=== PATIENT | female | born 1960 | race Caucasian/White ===

== ENCOUNTER 2017-06-24 17:58 | Inpatient (IN) ==
[2017-06-24 19:46] LABS: Bilirubin,Urine Negative (Negative); Blood,Urine Negative (Negative); Clarity,Urine Clear (Clear); Color,Urine Yellow (Yellow); Glucose,Urine (UA) Normal (Normal); Ketones,Urine Negative (Negative); Leukocyte Esterase,Urine Small (Negative); Nitrite,Urine Negative (Negative); Protein,Urine Negative (Neg-Trace); Specific Gravity,Urine 1.014 (1.010-1.025); Urobilinogen,Urine Normal (Normal)
[2017-06-24 19:52] LABS: Amphetamine Screen,Urine Negative ng/mL (Cutoff=1000); Barbiturate Screen,Urine Negative ng/mL (Cutoff=200); Benzodiazepines Screen,Urine Negative ng/mL (Cutoff=200); Cannabinoid Screen,Urine Negative ng/mL (Cutoff = 50); Cocaine Screen,Urine Negative ng/mL (Cutoff= 300); Opiate Screen,Urine Negative ng/mL (Cutoff=300); Phencyclidine Screen,Urine Negative ng/mL (Cutoff=25)
[2017-06-24 20:08] LABS: Squamous Epithelial Cell,Urine Moderate per lpf (None-Few)
[2017-06-24 20:09] LABS: Bacteria,Urine Few per hpf (None-Few); RBC,Urine 0-3 per hpf (0-3)
[2017-06-24 20:28] LABS: Basophils % 0.6 %; Eosinophils # 0.1 K/mcL (0.0-0.6); Eosinophils % 1.3 %; Hematocrit 40.4 % (35.3-44.9); Hemoglobin 13.8 g/dL (11.5-15.4); Immature Granulocytes % 0.3 % (0-4); Lymphocytes # 1.8 K/mcL (0.6-4.6); Lymphocytes % 25.6 %; Mean Corpuscular HGB Conc 34.2 g/dL (31.6-35.5); Mean Corpuscular Hemoglobin 30.1 pg (28.0-33.3); Mean Platelet Volume 11.4 fL (9.4-12.4); Monocytes # 0.7 K/mcL (0.0-1.3); Monocytes % 10.5 %; Neutrophils # 4.3 K/mcL (1.6-8.9); Platelet Count 272 K/mcL (140-400); Red Blood Count 4.59 M/mcL (3.82-4.97); Segmented Neutrophils % 61.7 %
[2017-06-24 20:41] LABS: BUN/Creatinine Ratio 13 (6-26); Blood Urea Nitrogen 11 mg/dL (7-20); Carbon Dioxide 21 mEq/L (19-29); Chloride 105 mEq/L (98-109); Glucose 99 mg/dL (70-99); Osmolality,Calculated 285 (280-300); Potassium 3.8 mEq/L (3.5-4.5); Sodium 138 mEq/L (136-145); eGFR For African Americans > 60 (> 60); eGFR For Non-African Americans > 60 (> 60)
[2017-06-24 20:45] LABS: Acetaminophen < 1.0 mcg/mL (10-30); Ethanol < 10 mg/dL (0-10); Salicylate < 5.0 mg/dL (15-30)
--- NOTE | 2017-06-24 23:09 | Emergency Department Note ---
Disposition Clinical Impression: Acute psychosis Disposition: Admitted As Inpatient Condition: Good Time of Disposition: 23:28 Psych HPI - General Chief Complaint: ED Psychiatric Symptoms Stated Complaint: not si/hi sleep deprived, "i need to go to [facility]" Time Seen by Provider: 06/24/17 19:33 Source: patient Mode of arrival: ambulatory Limitations: no limitations Nursing Notes Reviewed: Yes Vital Signs Reviewed: Yes - History of Present Illness HPI Narrative: 56-year-old female presenting to the emergency department with a chief complaint of insomnia. Patient states she has been feeling "out of her head". She is significant past medical history for schizoaffective disorder. She states she has been weaning herself off her medications. She does have an outpatient counselor. Patient states she does not have any specific suicidal ideation or homicidal ideation but did go to hospice today to speak with them about "stopping to take care of myself". Patient states she has been hospitalized for this in the past. She denies any intentional ingestion before arrival. She does disclose visual and auditory hallucinations including people in the waiting room making odd eye contact with her. - Related Data Home Medications Medication Instructions Recorded Confirmed Amlodipine [Amlodipine Besylate] 10 mg PO DAILY 05/19/15 08/30/15 Levothyroxine [Synthroid] 88 mcg PO QAM 05/19/15 08/30/15 Lisinopril [Zestril] 5 mg PO DAILY 05/19/15 08/30/15 Megestrol Acetate [Megace] 40 mg PO DAILY 05/19/15 08/30/15 Metformin HCl [Fortamet] 500 mg PO QAM 05/19/15 08/30/15 Multivitamin [Flintstones] 1 each PO DAILY 07/28/15 08/30/15 Oxybutynin [Ditropan] 5 mg PO TID 10/02/15 10/02/15 amLODIPine [Norvasc] 10 mg PO DAILY 10/02/15 10/02/15 Amoxicillin/Clavulanate [Augmentin] 875 mg PO BIDWM 10/03/15 10/03/15 Previous Rx's Medication Instructions Recorded Ibuprofen [Motrin] 800 mg PO Q8HR PRN #30 tablet 05/19/15 BuPROPion XL (24 HR) [Wellbutrin 300 mg PO DAILY tab.er.24h 01/08/16 Xl] LORazepam [Ativan] 1 mg PO TID PRN #90 tablet 01/08/16 Lurasidone [Latuda] 40 mg PO HS #60 tablet 01/08/16 Allergies Allergy/AdvReac Type Severity Reaction Status Date / Time diphenhydramine AdvReac See Verified 05/08/15 09:56 [From Benadryl] Comments Limitations: ROS unobtainable due to patients medical condition Constitutional: Denies: fever, chills, weakness Eyes: Reports: as per HPI ENT ED: Reports: as per HPI Cardiovascular: Denies: chest pain, palpitations Respiratory: Denies: cough, dyspnea, wheezes Gastrointestinal: Denies: abdominal pain, nausea, vomiting Genitourinary: Reports: as per HPI Musculoskeletal: Reports: as per HPI Integumentary: Reports: as per HPI Neurological: Denies: weakness, numbness, paresthesias Psychiatric: Reports: auditory hallucinations, visual hallucinations Endocrine: Reports: as per HPI Hematological/Lymphatic: Reports: as per HPI Allergic/Immunologic: Reports: as per HPI Past Medical History - Past Medical History Attestation: Yes The following information was validated with the patient. Medical history: Reports: diabetes, hypertension, other, thyroid disease Surgical history: Reports: other Psychiatric history: Reports: bipolar, depression, previous psychiatric hospitalization [employer] history: Reports: uterine fibroids - Social History Smoking Status: Never smoker Smokeless Tobacco Status: No Alcohol use: Reports: none Drug use: Reports: none Physical Exam - General Limitations: no limitations General appearance: alert, in no apparent distress - Head Head exam: atraumatic, normocephalic, normal inspection - Eye Eye exam: Present: normal appearance. Absent: scleral icterus, conjunctival injection - Chest Chest inspection: Present: normal inspection, symmetric chest wall rise. Absent : tenderness, rash - Respiratory Respiratory exam: Present: normal lung sounds bilaterally. Absent: respiratory distress, wheezes - Cardiovascular Cardiovascular exam: Present: regular rate, normal rhythm, normal heart sounds - Abdominal Exam Abdominal exam: Present: soft, Non-Tender. Absent: distention, guarding, rebound - Extremities Exam Extremities exam: Present: normal inspection, full ROM - Neurological Exam Neurological exam: Present: alert, oriented X3 - Psychiatric Psychiatric exam: Present: manic. Absent: homicidal ideation, suicidal ideation - Skin Skin exam: Present: warm, intact Course Course Narrative: 56-year-old female presenting for [facility] consultation. Patient appears manic on exam. She is alert and oriented 3 with stable vital signs. We will complete basic lab work for psychiatric workup and contact [facility] for further disposition. Disposition pending consultation by psychiatry. - Reevaluation(s) Reevaluation #1: Patient has been accepted by [facility] for inpatient psychiatric services. Patient is medically clear at this time. We will admit the patient at this time. She is alert and oriented 3 with stable vital signs. Patient agrees with this plan. Time: 23:28 Vital Signs Temperature 98 F 06/24/17 18:32 Pulse Rate 78 06/24/17 18:32 Respiratory Rate 16 06/24/17 18:32 Blood Pressure 169/92 06/24/17 18:32 O2 Sat by Pulse Oximetry 97 06/24/17 18:32 Temperature 98 F 06/24/17 18:32 Pulse Rate 78 06/24/17 18:32 Respiratory Rate 16 06/24/17 18:32 Blood Pressure 169/92 06/24/17 18:32 O2 Sat by Pulse Oximetry 97 06/24/17 18:32 Oxygen Delivery Oxygen Delivery Room Air Psych - Lab Data Result diagrams: 06/24/17 20:22 06/24/17 20:22 Lab Results 06/24/17 06/24/17 06/24/17 Range/Units 19:38 19:38 19:38 WBC (4.3-11.1) K/mcL RBC (3.82-4.97) M/mcL Hgb (11.5-15.4) g/dL Hct (35.3-44.9) % MCV (83.0-100.0) fL MCH (28.0-33.3) pg MCHC (31.6-35.5) g/dL RDW (11.5-14.5) % Plt Count (140-400) K/mcL MPV (9.4-12.4) fL Immature Gran % (0-4) % Seg Neutrophils % % Lymphocytes % % Monocytes % % Eosinophils % % Basophils % % Neutrophils # (1.6-8.9) K/mcL Lymphocytes # (0.6-4.6) K/mcL Monocytes # (0.0-1.3) K/mcL Eosinophils # (0.0-0.6) K/mcL Basophils # (0.0-0.2) K/mcL Sodium (136-145) mEq/L Potassium (3.5-4.5) mEq/L Chloride (98-109) mEq/L Carbon Dioxide (19-29) mEq/L BUN (7-20) mg/dL Creatinine (0.57-1.11) mg/dL Est GFR ( Amer) (> 60) Est GFR (Non-Af Amer) (> 60) BUN/Creatinine Ratio (6-26) Glucose (70-99) mg/dL Calculated Osmolality (280-300) Calcium (8.6-10.8) mg/dL Urine Color Yellow (Yellow) Urine Clarity Clear (Clear) Urine pH 6.0 (5.0-8.0) pH Units Ur Specific [place] 1.014 (1.010-1.025) Urine Protein Negative (Neg-Trace) mg/dL Urine Glucose (UA) Normal (Normal) mg/dL Urine Ketones Negative (Negative) mg/dL Urine Blood Negative (Negative) Urine Nitrite Negative (Negative) Urine Bilirubin Negative (Negative) Urine Urobilinogen Normal (Normal) mg/dL Ur Leukocyte Esterase Small H (Negative) Urine Microscopic RBC 0-3 (0-3) per hpf Urine Microscopic WBC 3-5 H (0-3) per hpf Ur Squamous Epith Cells Moderate H (None-Few) per lpf Urine Bacteria Few (None-Few) per hpf Ur Culture Indicated? YES A (NO) Urine Test Negative (Negative) Salicylates (15-30) mg/dL Urine Opiates Screen Negative (Ivdyxa=104) ng/mL Acetaminophen (10-30) mcg/mL Ur Barbiturates Screen Negative (Ycldvr=364) ng/mL Ur Phencyclidine Scrn Negative (Cutoff=25) ng/mL Ur Amphetamines Screen Negative (Xjmoqs=5561) ng/mL U Benzodiazepines Scrn Negative (Ygpvjq=661) ng/mL Urine Cocaine Screen Negative (Cutoff= 300) ng/mL U Marijuana (THC) Screen Negative (Cutoff = 50) ng/mL Ethyl Alcohol (0-10) mg/dL 06/24/17 06/24/17 Range/Units 20:22 20:22 WBC 7.0 (4.3-11.1) K/mcL RBC 4.59 (3.82-4.97) M/mcL Hgb 13.8 (11.5-15.4) g/dL Hct 40.4 (35.3-44.9) % MCV 88.0 (83.0-100.0) fL MCH 30.1 (28.0-33.3) pg MCHC 34.2 (31.6-35.5) g/dL RDW 13.0 (11.5-14.5) % Plt Count 272 (140-400) K/mcL MPV 11.4 (9.4-12.4) fL Immature Gran % 0.3 (0-4) % Seg Neutrophils % 61.7 % Lymphocytes % 25.6 % Monocytes % 10.5 % Eosinophils % 1.3 % Basophils % 0.6 % Neutrophils # 4.3 (1.6-8.9) K/mcL Lymphocytes # 1.8 (0.6-4.6) K/mcL Monocytes # 0.7 (0.0-1.3) K/mcL Eosinophils # 0.1 (0.0-0.6) K/mcL Basophils # 0.0 (0.0-0.2) K/mcL Sodium 138 (136-145) mEq/L Potassium 3.8 (3.5-4.5) mEq/L Chloride 105 (98-109) mEq/L Carbon Dioxide 21 (19-29) mEq/L BUN 11 (7-20) mg/dL Creatinine 0.82 (0.57-1.11) mg/dL Est GFR ( Amer) > 60 (> 60) Est GFR (Non-Af Amer) > 60 (> 60) BUN/Creatinine Ratio 13 (6-26) Glucose 99 (70-99) mg/dL Calculated Osmolality 285 (280-300) Calcium 10.0 (8.6-10.8) mg/dL Urine Color (Yellow) Urine Clarity (Clear) Urine pH (5.0-8.0) pH Units Ur Specific [place] (1.010-1.025) Urine Protein (Neg-Trace) mg/dL Urine Glucose (UA) (Normal) mg/dL Urine Ketones (Negative) mg/dL Urine Blood (Negative) Urine Nitrite (Negative) Urine Bilirubin (Negative) Urine Urobilinogen (Normal) mg/dL Ur Leukocyte Esterase (Negative) Urine Microscopic RBC (0-3) per hpf Urine Microscopic WBC (0-3) per hpf Ur Squamous Epith Cells (None-Few) per lpf Urine Bacteria (None-Few) per hpf Ur Culture Indicated? (NO) Urine Test (Negative) Salicylates < 5.0 L (15-30) mg/dL Urine Opiates Screen (Mvxavl=797) ng/mL Acetaminophen < 1.0 L (10-30) mcg/mL Ur Barbiturates Screen (Zlyxnm=525) ng/mL Ur Phencyclidine Scrn (Cutoff=25) ng/mL Ur Amphetamines Screen (Zxhlrg=1102) ng/mL U Benzodiazepines Scrn (Aheyrl=839) ng/mL Urine Cocaine Screen (Cutoff= 300) ng/mL U Marijuana (THC) Screen (Cutoff = 50) ng/mL Ethyl Alcohol < 10 (0-10) mg/dL Psychiatric Medical Clearance - Medical Clearance Checklist Medical History: Acute anxiety (Acute) Major depressive disorder, recurrent, severe with psychotic features (Acute) Homicidal ideation (Acute) Bipolar disorder (Acute) Acute psychosis (Acute) No Social History Section defined Current Vitals: Last Vital Signs Temp 98 F 06/24/17 18:32 Pulse 78 06/24/17 18:32 Resp 16 06/24/17 18:32 BP 169/92 06/24/17 18:32 Pulse Ox 97 06/24/17 18:32 Psychiatric Lab Panel: Drug Levels and Toxicity 06/24/17 06/24/17 19:38 20:22 Urine Opiates Screen Negative Acetaminophen < 1.0 L Ur Barbiturates Screen Negative Ur Phencyclidine Scrn Negative Ur Amphetamines Screen Negative U Benzodiazepines Scrn Negative Urine Cocaine Screen Negative U Marijuana (THC) Screen Negative Ethyl Alcohol < 10 Abnormal Labs: Abnormal lab results Ur Leukocyte Esterase Small (Negative) H 06/24/17 19:38 Urine Microscopic WBC 3-5 per hpf (0-3) H 06/24/17 19:38 Ur Squamous Epith Cells Moderate per lpf (None-Few) H 06/24/17 19:38 Ur Culture Indicated? YES (NO) A 06/24/17 19:38 Salicylates < 5.0 mg/dL (15-30) L 06/24/17 20:22 Acetaminophen < 1.0 mcg/mL (10-30) L 06/24/17 20:22 Attestation Statement - Attestation Attestation: I, Duy Budi, examined this patient and my medical decision-making was reviewed with the BOTTLE WASHER MACHINE/PA/Advanced Practice Nurse/Resident Physician. I agree with the documented findings, disposition and treatment plan as described except to the extent set forth below. 86-year-old female presents with concerns of acute psychosis. She states that she has been unable to sleep over the past few days. Patient reports people are unable to make eye contact with her. She also states that her family member is able to hear whenever she discusses and will then call her on the phone. Patient denies SI, HI, or visual hallucinations. Patient was medically cleared and seen by behavioral health and felt patient required inpatient treatment.
[2017-06-24] MEDS ORDERED: Haloperidol Lactate 5 MG/ML VIAL IM PRN (23:50)
[2017-06-24] MEDS ORDERED: *HR* LORazepam 2 MG/ML VIAL IM PRN (23:50)
[2017-06-24] MEDS ORDERED: traZODone 50 MG TABLET PO PRN (23:50)
[2017-06-24] MEDS ORDERED: MOM Conc 10 ML UD.LIQ PO PRN (23:50)
[2017-06-24] MEDS ORDERED: Mag Hydrox/Al Hydrox/Simeth 30 ML UDC PO PRN (23:50)
[2017-06-24] MEDS ORDERED: Ibuprofen 400 MG TABLET PO PRN (23:50)
[2017-06-24] MEDS ORDERED: hydrOXYzine pamoate 25 MG CAPSULE PO PRN (23:50)
[2017-06-25] MEDS: *HR* LORazepam 1 MG TABLET PO PRN ×2 (00:55→20:58)
--- NOTE | 2017-06-25 13:46 | Psychiatry History & Physical ---
Date of Encounter: 06/25/17 Time of Encounter: 01:10 History of Present Illness Patient Stated Chief Complaint: I have insomnia Medicare Admission Attestation: For traditional Medicare patients the provided hospital inpatient services are reasonable and necessary and in the case of services not specified as inpatient -only under 42 CFR 419.22 (n), that they are appropriately provided as inpatient services in accordance 42 CFR 412.3. For Critical Access Hospital the patient may reasonably be expected to be discharged or transferred to a hospital within 96 hours after admission to the Critical Access Hospital. Admitted From: Emergency Dept Plans for Post Hospital Care: Home History of Present Illness: Ms. Lima is a 56 year old female Was noted to have history of bipolar disorder and PTSD. She presented to the emergency department reporting that she has not slept for the last few nights and has been having racing thoughts and mood swings, irritability and is "dissociating". Patient reported that she is having recurrent flashbacks and nightmares of the things that has been done to her. She did not reveal detail account of her past trauma. She has been tapering herself off the medications and has been noticing these symptoms. Prior to hospitalization she contacted a hospice nurse and asked them how to not care of oneself and . She has a very strong wish. She reported that she can go on like that. Since patient was having the above-mentioned symptoms and has not been compliant with her medications and reporting depression and strong. wish and was not able to provide care for herself it was decided to hospitalize her at [facility] for the above-mentioned symptoms. Past Med Surg Social Fam HX - Past Medical History Medical history: diabetes, hypertension, other, thyroid disease - Past Psychiatric History Psychiatric history: Reports: bipolar, PTSD, previous psychiatric hospitalization - Past Surgical History Surgical History: other - Social History Smoking Status: Never smoker Smokeless Tobacco Status: No Alcohol use: none Drug use: none Occupational status: disabled Current living situation: Home Activity Level: Independent ambulation Recent Out of Country Travel Within the Last 8 Weeks: No Exposure or Possible Exposure to Illness During Travel: No Additional social history: Patient is single and is on disability and resides by herself Medications & Allergies Levothyroxine [Synthroid] 88 mcg PO QAM 05/19/15 [History] Lisinopril [Zestril] 5 mg PO DAILY 09/28/15 [History] Multivitamin [Flintstones] 1 each PO DAILY 07/28/15 [History] Oxybutynin [Ditropan] 5 mg PO TID 10/02/15 [History] amLODIPine [Norvasc] 10 mg PO DAILY 10/02/15 [History] BuPROPion XL (24 HR) [Wellbutrin Xl] 300 mg PO DAILY tab.er.24h 01/08/16 [Rx] LORazepam [Ativan] 1 mg PO TID PRN #90 tablet 01/08/16 [Rx] Meloxicam 15 mg PO DAILY 06/25/17 [History] OLANZapine [Zyprexa] 5 mg PO DAILY 06/25/17 [History] 3 Allergy/AdvReac Type Severity Reaction Status Date / Time diphenhydramine AdvReac See Verified 05/08/15 09:56 [From Davina] Comments Review of Systems Psychiatric: Reports: depression, anxiety, hopelessness, mood swings Mental Status Exam Patient orientation: Yes Person, Yes Time, Yes Place Level of alertness: Alert Patient appearance: Unkempt Behavior: anxious Psychomotor activity: Normal Eye contact: Maintains Eye Contact Mood description: Anxious, Irritable Affect description: constricted, dysphoric Speech pattern: Normal rate, Normal rhythm, Normal tone Speech volume: Normal Thought process: Linear, Goal Oriented Thought content: Yes Suicidal ideation, Yes Nihilistic delusion Perceptual disturbances: No Auditory hallucinations, No Visual hallucinations Attention span: Capable of Focused Attention Memory description: Grossly Intact Patient reliability: Reliable Historian Intelligence estimate: Average Judgment: Limited Insight: Minimal Exam - HEENT Head exam IM: Present: normal inspection Eye exam IM: Present: normal appearance ENT exam IM: Present: normal exam - Neurological Neurological exam IM: Present: CN II-XII intact, normal gait, oriented X3, reflexes normal, no focal deficits, strengths equal and symetr throughout. Absent: motor sensory deficit - Respiratory Respiratory exam IM: Absent: respiratory distress, rhonchi, stridor, wheezes - GI/Abdominal GI/Abdominal exam IM: Present: normal bowel sounds, soft - Extremities Extremities exam IM: Present: full ROM, normal inspection - Skin Skin exam IM: Present: intact Results - Vital Signs Vital signs: Temp Pulse Resp BP Pulse Ox 99.1 F 81 18 122/73 97 06/25/17 09:00 06/25/17 09:00 06/25/17 09:00 06/25/17 09:00 06/24/17 18:32 - Labs Labs: Laboratory Last Values WBC 7.0 K/mcL (4.3-11.1) 06/24/17 20:22 RBC 4.59 M/mcL (3.82-4.97) 06/24/17 20:22 Hgb 13.8 g/dL (11.5-15.4) 06/24/17 20:22 Hct 40.4 % (35.3-44.9) 06/24/17 20:22 MCV 88.0 fL (83.0-100.0) 06/24/17 20:22 MCH 30.1 pg (28.0-33.3) 06/24/17 20:22 MCHC 34.2 g/dL (31.6-35.5) 06/24/17 20:22 RDW 13.0 % (11.5-14.5) 06/24/17 20:22 Plt Count 272 K/mcL (140-400) 06/24/17 20:22 MPV 11.4 fL (9.4-12.4) 06/24/17 20:22 Immature Gran % 0.3 % (0-4) 06/24/17 20:22 Seg Neutrophils % 61.7 % 06/24/17 20:22 Lymphocytes % 25.6 % 06/24/17 20:22 Monocytes % 10.5 % 06/24/17 20:22 Eosinophils % 1.3 % 06/24/17 20:22 Basophils % 0.6 % 06/24/17 20:22 Neutrophils # 4.3 K/mcL (1.6-8.9) 06/24/17 20:22 Lymphocytes # 1.8 K/mcL (0.6-4.6) 06/24/17 20:22 Monocytes # 0.7 K/mcL (0.0-1.3) 06/24/17 20:22 Eosinophils # 0.1 K/mcL (0.0-0.6) 06/24/17 20:22 Basophils # 0.0 K/mcL (0.0-0.2) 06/24/17 20:22 Sodium 138 mEq/L (136-145) 06/24/17 20:22 Potassium 3.8 mEq/L (3.5-4.5) 06/24/17 20:22 Chloride 105 mEq/L (98-109) 06/24/17 20:22 Carbon Dioxide 21 mEq/L (19-29) 06/24/17 20:22 BUN 11 mg/dL (7-20) 06/24/17 20:22 Creatinine 0.82 mg/dL (0.57-1.11) 06/24/17 20:22 Est GFR ( Amer) > 60 (> 60) 06/24/17 20:22 Est GFR (Non-Af Amer) > 60 (> 60) 06/24/17 20:22 BUN/Creatinine Ratio 13 (6-26) 06/24/17 20:22 Glucose 99 mg/dL (70-99) 06/24/17 20:22 Calculated Osmolality 285 (280-300) 06/24/17 20:22 Calcium 10.0 mg/dL (8.6-10.8) 06/24/17 20:22 Urine Color Yellow (Yellow) 06/24/17 19:38 Urine Clarity Clear (Clear) 06/24/17 19:38 Urine pH 6.0 pH Units (5.0-8.0) 06/24/17 19:38 Ur Specific [place] 1.014 (1.010-1.025) 06/24/17 19:38 Urine Protein Negative mg/dL (Neg-Trace) 06/24/17 19:38 Urine Glucose (UA) Normal mg/dL (Normal) 06/24/17 19:38 Urine Ketones Negative mg/dL (Negative) 06/24/17 19:38 Urine Blood Negative (Negative) 06/24/17 19:38 Urine Nitrite Negative (Negative) 06/24/17 19:38 Urine Bilirubin Negative (Negative) 06/24/17 19:38 Urine Urobilinogen Normal mg/dL (Normal) 06/24/17 19:38 Ur Leukocyte Esterase Small (Negative) H 06/24/17 19:38 Urine Microscopic RBC 0-3 per hpf (0-3) 06/24/17 19:38 Urine Microscopic WBC 3-5 per hpf (0-3) H 06/24/17 19:38 Ur Squamous Epith Cells Moderate per lpf (None-Few) H 06/24/17 19:38 Urine Bacteria Few per hpf (None-Few) 06/24/17 19:38 Ur Culture Indicated? YES (NO) A 06/24/17 19:38 Urine Test Negative (Negative) 06/24/17 19:38 Salicylates < 5.0 mg/dL (15-30) L 06/24/17 20:22 Urine Opiates Screen Negative ng/mL (Vijsao=913) 06/24/17 19:38 Acetaminophen < 1.0 mcg/mL (10-30) L 06/24/17 20:22 Ur Barbiturates Screen Negative ng/mL (Imtbff=616) 06/24/17 19:38 Ur Phencyclidine Scrn Negative ng/mL (Cutoff=25) 06/24/17 19:38 Ur Amphetamines Screen Negative ng/mL (Evhota=2077) 06/24/17 19:38 U Benzodiazepines Scrn Negative ng/mL (Kntbpp=676) 06/24/17 19:38 Urine Cocaine Screen Negative ng/mL (Cutoff= 300) 06/24/17 19:38 U Marijuana (THC) Screen Negative ng/mL (Cutoff = 50) 06/24/17 19:38 Ethyl Alcohol < 10 mg/dL (0-10) 06/24/17 20:22 Assessment and Plan (1) PTSD (post-traumatic stress disorder) Current visit: Yes Status: Acute Plan: Admit inpatient for safety and stabilization, Close observation, Suicide Precautions per unit protocol, Encourage participation in unit milieu, Group Therapy, Monitor sleep, Monitor appetite Additional Plan: We will start the patient on Minipress 1 mg at bedtime for her PTSD related symptoms Risks, benefits, side effects, alternatives discussed w/pt: Yes Patient agreeable to treatment: Yes Plans for Post Hospital Care: Home Estimated Length of Stay (Days): 4 (2) Bipolar disorder Current visit: No Status: Acute Plan: Admit inpatient for safety and stabilization, Close observation, Suicide Precautions per unit protocol, Encourage participation in unit milieu, Group Therapy, Monitor sleep, Monitor appetite Additional Plan: I went over multiple mood stabilizers and antidepressants to offer patient for her mood stabilization. At this point in time she is refusing to take anything but the Minipress 1 mg at bedtime for PTSD symptoms. Patient reported that her mood swings and other symptoms are related to her past trauma and flashbacks and reliving of the trauma and if he can control that with Minipress she will not need to take any other medication. We will continue to address antidepressant and mood stabilizer to the patient and will encourage her to consider taking them. Risks, benefits, side effects, alternatives discussed w/pt: Yes Patient agreeable to treatment: Yes Plans for Post Hospital Care: Home Estimated Length of Stay (Days): 4 Qualifiers: Active/Remission status: currently active Current bipolar episode type: manic Current episode severity: severe Psychotic features: with psychotic features Qualified Code(s): F31.2 - Bipolar disorder, current episode manic severe with psychotic features
[2017-06-25] MEDS: amLODIPine 5 MG TABLET PO SCH (15:31)
[2017-06-25] MEDS ORDERED: OLANZapine 10 MG TAB.RAPDIS PO SCH (21:00)
[2017-06-26] MEDS: amLODIPine 5 MG TABLET PO SCH (08:32)
--- NOTE | 2017-06-26 12:32 | Psychiatry Progress Note ---
Date of Encounter: 06/26/17 Time of Encounter: 12:28 Subjective Interval history: Patient seen and interviewed. Reporting of feeling a lot better. Patient slept fairly well last night and tolerated Minipress very well did not wake up from any nightmares or dreams. She reported that she is feeling more control, and relaxed although still endorsing some restlessness and nervousness. Denying any suicidal or homicidal ideations. Denying any psychotic or manic symptoms. Planning on attending groups and learning coping skills and working on a safety plan. Overall making progress. We discussed the possibility of discharge tomorrow patient is agreeable. Review of Systems Psychiatric: Reports: anxiety Objective: Exam Patient orientation: Yes Person, Yes Time, Yes Place Level of alertness: Alert Patient appearance: Appropriate, Well Groomed Behavior: calm, cooperative, anxious Psychomotor activity: Normal Eye contact: Maintains Eye Contact Mood description: Anxious Affect description: congruent with mood, full range Speech pattern: Normal rate, Normal rhythm, Normal tone Speech volume: Normal Thought process: Linear, Goal Oriented Thought content: No Suicidal ideation, No Homicidal ideation, No Overt delusions Perceptual disturbances: No Auditory hallucinations, No Visual hallucinations Judgment: Fair Insight: Partial Results - Vital Signs Vital Signs: Temp Pulse Resp BP Pulse Ox 97.8 F 77 18 113/70 97 06/26/17 09:00 06/26/17 09:00 06/26/17 09:00 06/26/17 09:00 06/24/17 18:32 - Labs Labs: Laboratory Results - last 24 hr 06/25/17 06/26/17 21:59 09:11 POC Glucose 100 H 102 H Assessment and Plan (1) PTSD (post-traumatic stress disorder) Current visit: Yes Status: Acute Plan: Continue hospitalization, Close observation, Suicide Precautions per unit protocol, Encourage participation in unit milieu, Group Therapy, Monitor sleep, Monitor appetite Additional Plan: Possible d/c tomorrow Risks, benefits, side effects, alternatives discussed w/pt: Yes Patient agreeable to treatment: Yes (2) Bipolar disorder Current visit: No Status: Acute Risks, benefits, side effects, alternatives discussed w/pt: Yes Patient agreeable to treatment: Yes Qualifiers: Active/Remission status: currently active Current bipolar episode type: manic Current episode severity: severe Psychotic features: with psychotic features Qualified Code(s): F31.2 - Bipolar disorder, current episode manic severe with psychotic features Consult Discharge Plan - Plan Referrals: NONE,PCP [Primary Care Provider] -
[2017-06-27] MEDS: amLODIPine 5 MG TABLET PO SCH (08:30)
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
[2017-06-28] MEDS: amLODIPine 5 MG TABLET PO SCH (08:54)
[2017-06-28 09:35] VITALS: BP 142/95
--- NOTE | 2017-06-28 17:02 | Discharge Summary ---
Date of Encounter: 06/28/17 Time of Encounter: 16:59 Diagnosis - Discharge Diagnosis (1) Bipolar disorder Status: Acute Qualifiers: Active/Remission status: currently active Current bipolar episode type: manic Current episode severity: severe Psychotic features: with psychotic features Qualified Code(s): F31.2 - Bipolar disorder, current episode manic severe with psychotic features Medications - Discharge Medications Prescriptions: Prazosin [Minipress] 1 mg PO HS #30 capsule Levothyroxine [Synthroid] 88 mcg PO QAM 05/19/15 [History] Lisinopril [Zestril] 5 mg PO DAILY 05/19/15 [History] Multivitamin [Flintstones] 1 each PO DAILY 07/28/15 [History] amLODIPine [Norvasc] 10 mg PO DAILY 10/02/15 [History] BuPROPion XL (24 HR) [Wellbutrin Xl] 300 mg PO DAILY tab.er.24h 01/08/16 [Rx] LORazepam [Ativan] 1 mg PO TID PRN #90 tablet 01/08/16 [Rx] Meloxicam 15 mg PO DAILY 06/25/17 [History] OLANZapine [Zyprexa] 5 mg PO DAILY 06/25/17 [History] Lisinopril [Zestril] 5 mg PO DAILY tablet 06/28/17 [Rx] Oxybutynin [Ditropan] 5 mg PO BID tablet 06/28/17 [Rx] Prazosin [Minipress] 1 mg PO HS #30 capsule 06/28/17 [Rx] amLODIPine [Norvasc] 10 mg PO DAILY tablet 06/28/17 [Rx] 3 Allergy/AdvReac Type Severity Reaction Status Date / Time diphenhydramine AdvReac See Verified 05/08/15 09:56 [From Benadryl] Comments Provider Date of admission: 06/24/17 23:04 Primary care physician: PCP NONE Discharging clinician: My [facility] Assessment and Plan - Patient/Caregiver Discharge Instructions Activity: resume usual activities as tolerated Diet: regular diet - Follow up Plan Follow up with: [facility] [Outside] - 07/21/17 9:40 am (The above appointment is with Dr. Leon for outpatient psychiatric assessment and medication management services. Please arrive 10 minutes early to all appointments to complete the check-in process. Please bring your insurance card (or [facility]) and photo ID. If you are unable to keep any scheduled appointment, 24 hour business notice of cancellation is expected. The above appointment(s) reflects first availability. You may contact the office regularly to check for cancellations that may allow you to be seen sooner. ) Overall status at discharge: Stable Disposition: Home, Self-Care Hospital Course Hospital course: Ms. Lima is a 56 year old female who referred herself to secondary to "sleep deprivation." She was started on Prazosin by the attending physician and client reported clinical benefit from this medication. She was unwilling to consider any other mental health medications during her inpatient stay. She slept well with the Prazosin and in her mind her primary concern was addressed. She denied SI/HI and she was not demonstrating dangerous behaviors on the unit. She did demonstrate manic type behaviors while on the unit. She was loud and intrusive. At times she could be condescending toward staff and the other patients. She was irritable. However, she expressed a desire for discharge and staff did not feel she met probate criteria. She has her own apartment and she gets support form her local [employer]ondo[employer]. Her family assessment worker was the one who transported Evelia to the hospital and who also agreed to pick her up. Evelia is linked with Dr. Leon for outpatient management. She has follow-up scheduled with Dr. Leon and Evelia was told she can expect to discuss medication options at these appointments. Evelia was very dismissive about taking medications and refused all medications offered by this physician. She could easily require inpatient treatment again prior to her outpatient appointment if she decompensates further. At this time she is not presenting as a danger to herself or others but she could worsen clinically since she is not taking medications specifically for her Bipolar illness. - Time Spent with Patient Total time spent providing and/or coordinating discharge services: Quality - Multiple Antipsychotics Patient discharged on 2 or more antipsychotic medications: No Procedures - Procedures Procedures: Medication Management, Crisis Stabilization, Supportive Therapy, Group Therapy Mental Status Exam - Mental Status Exam Patient orientation: Yes Person, Yes Time, Yes Place Level of alertness: Alert Patient appearance: Appropriate Behavior: talkative Psychomotor activity: Increased Eye contact: Maintains Eye Contact Mood description: Elevated Affect description: congruent with mood Speech pattern: Rambling Speech Volume: Loud Thought process: Goal Oriented, Tangential Thought Content: No Suicidal ideation, No Homicidal ideation, No Overt delusions Perceptual Disturbances: No Auditory hallucinations, No Visual hallucinations Judgment: Limited Insight: Minimal
== END 2017-06-28 18:35 | disposition home or self-care (01) | DRG 885 ==
LOC: EMEROO 17:58 → SUATTDRO 23:04 → 1ANU 23:04
PROVIDERS: ADMIT Psychiatry & Neurology Psychiatry; ATTEND Psychiatry & Neurology Psychiatry